=== PATIENT | male | born 1975 | race African-American/Black ===

== ENCOUNTER 2023-03-21 03:33 | Emergency (ER) | payer MEDICARE ==
[~2023-03-21] VITALS: Ht 165.1 cm; Wt 71.7 kg
[2023-03-21 04:32] VITALS: BP 131/68; TEMP 98.3; O2SAT 98
[2023-03-21] MEDS ORDERED: NAPR-1164 PO (04:36)
== END 2023-03-21 04:53 | disposition home or self-care (01) ==
LOC: ER 03:49
DX: M79.671 Pain in right foot (principal)

== ENCOUNTER 2023-09-26 00:43 | Emergency (ER) | payer MEDICARE ==
[~2023-09-26] VITALS: Ht 175.3 cm; Wt 72.6 kg
[~2023-09-26 00:43] MED LIST: NAPR-1164 PO
[2023-09-26 01:13] VITALS: BP 134/86; TEMP 98.2; O2SAT 98
== END 2023-09-26 01:18 | disposition left against medical advice (07) ==
LOC: ER 00:47
DX: R51.9 Headache, unspecified (principal); Z53.21 Procedure and treatment not carried out due to patient leaving prior to being seen by health care provider